=== PATIENT | female | born 1985 | race Caucasian/White ===

== ENCOUNTER 2018-03-09 10:01 | Emergency (ER) | payer OTHER ==
[~2018-03-09] VITALS: Ht 172.7 cm; Wt 68.0 kg
[2018-03-09] MEDS ORDERED: PRENATAL VITAM1 EAC7 PO (10:33)
== END 2018-03-09 14:25 | disposition home or self-care (01) ==
LOC: ED 10:01
DX: O99.89 Other specified diseases and conditions complicating pregnancy, childbirth and the puerperium (principal); R10.2 Pelvic and perineal pain; N89.8 Other specified noninflammatory disorders of vagina; Z3A.01 Less than 8 weeks gestation of pregnancy; Z79.899 Other long term (current) drug therapy
CPT/HCPCS: 76802; 76817; 81001; 84702; 87210; 87491; 87591; 99284